=== PATIENT | male | born 1965 | race Caucasian/White ===

== ENCOUNTER 2022-11-20 21:32 | Emergency (ER) | payer OTHER ==
[~2022-11-20] VITALS: Ht 188 cm; Wt 122.5 kg
[2022-11-20 21:45] VITALS: BP_SYST 147
--- NOTE | 2022-11-20 21:48 | NUR ---
Patient to ER bed 02 to gown for evaluation. Side rails up. Report given to JOYCE LINCOLN.
--- NOTE | 2022-11-20 21:53 | NUR ---
Patient arrived to ED 2 for c/o pelvic pain, dizziness. Patient's family at bedside and said that it started 3 hours ago when he was working on the sink. He all of a sudden felt dizzy, pressure on top head. Patient reported feeling nauseous. He denies taking any meds prior to coming to hospital. He has past medical history of high cholesterol. Dr. Urena at bedside to MSE patient. Will continue to monitor.
[2022-11-20] MEDS ORDERED: ONDANSETRON 4 MG ODT TAB PO ONE (22:15)
[2022-11-20 22:39] LABS: BASOPHILS % (AUTO) 0.5 % (0.0-2.0); EOSINOPHILS # (AUTO) 0.1 K/uL (0.0-0.4); EOSINOPHILS % (AUTO) 0.9 % (0.0-4.0); HEMATOCRIT 43.7 % (36-54); HEMOGLOBIN 14.9 g/dL (14.0-18.0); LYMPHOCYTES # (AUTO) 1.8 K/uL (1.0-5.5); LYMPHOCYTES % (AUTO) 25.4 % (20.5-51.5); MEAN CORPUSCULAR HEMOGLOBIN 30 pg (27-31); MEAN CORPUSCULAR HGB CONC 34 % (32-36); MEAN CORPUSCULAR VOLUME 87 fL (79.0-98.0); MONOCYTES # (AUTO) 0.4 K/uL (0.0-1.0); MONOCYTES % (AUTO) 6.2 % (1.7-9.3); NEUTROPHILS # (AUTO) 4.7 K/uL (1.8-7.7); PLATELET COUNT (AUTO) 151 K/uL (130-430); RED CELL DISTRIBUTION WIDTH 13.3 % (9.0-15.0); WHITE BLOOD COUNT (AUTO) 7.1 K/uL (4.8-10.8)
[2022-11-20 22:46] LABS: ALBUMIN 3.4 g/dL (3.4-4.8); CALCIUM 8.4 mg/dL (8.4-11.0); CREATININE 0.87 mg/dL (0.55-1.30); TOTAL BILIRUBIN 0.6 mg/dL (0.0-1.0)
[2022-11-20] MEDS ORDERED: NACL 0.9% 1,000 ML IV ONE (23:15)
[2022-11-20] MEDS ORDERED: MECLIZINE HCL 25 MG TABLET (ANITVERT) PO ONE (23:30)
[2022-11-20] MEDS ORDERED: MECL-225 PO (23:41)
[2022-11-21 00:37] VITALS: BP_SYST 123
--- NOTE | 2022-11-21 00:37 | NUR ---
Patient given written and verbal discharge instructions and verbalizes understanding. ER MD discussed with patient the results and treatment provided. Patient in stable condition. ID arm band removed. IV catheter removed intact and dressing applied, no active bleeding. Rx of ANTIVERT given. Patient educated on pain management and to follow up with PMD. Pain Scale . Opportunity for questions provided and answered. Medication side effect fact sheet provided.
== END 2022-11-21 00:37 | disposition home or self-care (01) ==
LOC: SED 21:32
DX: R42 Dizziness and giddiness (principal); R11.0 Nausea; E11.9 Type 2 diabetes mellitus without complications; Z79.899 Other long term (current) drug therapy
CPT/HCPCS: 99284; 96360; 70450; 80053; 83037; 85025; 36415; 93005; 76376; J8597; Q0162; J7030